=== PATIENT | female | born 1955 | race Caucasian/White ===

== ENCOUNTER → 2019-11-12 | Outpatient (CLI) | payer BC ==
--- NOTE | 2019-11-13 12:44 | REP ---
Clinical: Positive rheumatoid factor . Comparison: None . Technique: PA and lateral. Findings: The mediastinum and cardiac silhouette are normal. The lung da silva are clear and without acute consolidation, effusion, or pneumothorax. The skeletal structures are intact and normal. Impression: 1. No acute cardiopulmonary process. Electronically Signed by Jake Schmidt MD 11/13/2019 12:35 P
--- NOTE | 2019-11-13 12:45 | REP ---
Clinical: Positive rheumatoid factor. Technique: Internal rotation, external rotation, and Y view of the right and left shoulder. Findings: Right shoulder demonstrates mild cortical irregularity and subtle spurring at the acromioclavicular joint. The subacromial space is normal. The glenohumeral joint appears normal. No periarticular calcifications or loose bodies noted. Left shoulder demonstrates mild cortical irregularity and subtle spurring at the acromioclavicular joint. The subacromial space is normal. The glenohumeral joint appears normal. No periarticular calcifications or loose bodies noted. Impression: Mild degenerative changes primarily involving the acromioclavicular joints. Electronically Signed by Jake Schmidt MD 11/13/2019 12:36 P
--- NOTE | 2019-11-13 12:48 | REP ---
Nickel: Positive rheumatoid factor. Technique: AP, lateral, bilateral oblique views of the right and left hand. Findings: Subchondral sclerosis with joint space narrowing and few scattered early osteophytes are noted at the bilateral interphalangeal joints and bilateral first metacarpophalangeal joints. No significant periarticular soft tissue swelling or underlying erosive changes / loose bodies are identified. No acute fracture dislocation. Impression: Mild osteoarthritic degenerative changes primarily involving the interphalangeal joints. Electronically Signed by Jake Schmidt MD 11/13/2019 12:38 P
== END ==
LOC: M WUC 15:34
PROVIDERS: ATTEND Internal Medicine
DX: R63.4 Abnormal weight loss (principal); M06.9 Rheumatoid arthritis, unspecified; M19.011 Primary osteoarthritis, right shoulder; M19.012 Primary osteoarthritis, left shoulder; M19.041 Primary osteoarthritis, right hand; M19.042 Primary osteoarthritis, left hand

== ENCOUNTER → 2019-11-12 | Outpatient (REF) | payer BC ==
[2019-11-12 17:11] LABS: BASO % 0.3 % (0.0-1.0); EOS # 0.1 10^3/uL (0.0-0.5); EOS % 1.1 % (0.0-3.0); HEMATOCRIT 44.4 % (36.0-47.0); HEMOGLOBIN 14.1 g/dl (12.0-15.5); LYMPH # 1.7 10^3/uL (1.5-5.0); LYMPH % 28.1 % (24.0-44.0); MEAN CORPUSCULAR HEMOGLOBIN 28.7 pg (27.0-33.0); MEAN CORPUSCULAR HGB CONC 31.8 g/dl (32.0-36.5); MEAN CORPUSCULAR VOLUME 90.2 fl (80.0-96.0); MONO # 0.7 10^3/uL (0.0-0.8); MONO % 10.7 % (0.0-5.0); NEUTROPHILS # 3.6 10^3/uL (1.5-8.5); NEUTROPHILS % 59.6 % (36.0-66.0); PLATELET COUNT, AUTOMATED 309 10^3/uL (150-450); RED BLOOD COUNT 4.92 10^6/uL (4.00-5.40); WHITE BLOOD COUNT 6.1 10^3/uL (4.0-10.0)
[2019-11-12 17:33] LABS: ERYTHROCYTE SEDIMENTATION RATE 7 mm/hr (0-30)
[2019-11-12 17:53] LABS: BLOOD UREA NITROGEN 18 MG/DL (7-18); CREATININE FOR GFR 0.55 MG/DL (0.55-1.30); GLUCOSE, FASTING 73 MG/DL (70-100)
[2019-11-12 17:54] LABS: ALBUMIN 3.9 GM/DL (3.2-5.2); ALT/SGPT 26 U/L (12-78); BILIRUBIN,TOTAL 0.7 MG/DL (0.2-1.0); C REACTIVE PROTEIN QUANTITATIV < 0.30 MG/DL (0.00-0.30); CALCIUM LEVEL 9.6 MG/DL (8.8-10.2); CARBON DIOXIDE LEVEL 26 MEQ/L (21-32); CHLORIDE LEVEL 105 MEQ/L (98-107); FREE T4 1.07 NG/DL (0.76-1.46); GLOMERULAR FILTRATION RATE > 60.0 (>45); POTASSIUM SERUM 4.6 MEQ/L (3.5-5.1); RHEUMATOID FACTOR QUANT < 10.0 IU/ML (<15.0); SODIUM LEVEL 137 MEQ/L (136-145); TOTAL PROTEIN 7.1 GM/DL (6.4-8.2)
[2019-11-13 12:05] LABS: ALBUMIN 4.39 GM/DL (3.29-5.55); ALBUMIN % 61.8 % (55.8-66.1); ALPHA-1-GLOBULIN % 3.7 % (2.9-4.9); ALPHA-1-GLOBULINS 0.26 GM/DL (0.17-0.41); ALPHA-2-GLOBULINS 0.89 GM/DL (0.42-0.99); ALPHA-2-GLOBULINS % 12.6 % (7.1-11.8); BETA-1-GLOBULINS 0.43 GM/DL (0.28-0.60); BETA-1-GLOBULINS % 6.1 % (4.7-7.2); BETA-2-GLOBULINS 0.35 GM/DL (0.19-0.55); BETA-2-GLOBULINS % 4.9 % (3.2-6.5); GAMMA GLOBULIN % 10.9 % (11.1-18.8); GAMMA GLOBULINS 0.77 GM/DL (0.65-1.58)
[2019-11-14 11:20] LABS: HEPATITIS B SURFACE ANTIGEN NEGATIVE (NEGATIVE)
[2019-11-14 11:48] LABS: HEPATITIS C VIRUS ABY INDEX 0.2 INDEX (<0.8)
[2019-11-15 00:06] LABS: CYCLIC CITRULLINATED PEPTIDE 9 units (0-19); HEPATITIS B CORE ANTIBODY IGG Negative (Negative); SSA SJOGRENS A <0.2 AI (0.0-0.9); SSB SJOGRENS B <0.2 AI (0.0-0.9)
== END ==
LOC: M SFHCRHEU 13:49
PROVIDERS: ATTEND Internal Medicine
DX: M06.9 Rheumatoid arthritis, unspecified (principal); R63.4 Abnormal weight loss

== ENCOUNTER 2019-12-01 06:50 | Inpatient (IN) | payer BC ==
[~2019-12-01] VITALS: Ht 167.6 cm; Wt 82.1 kg
[~2019-12-01 06:50] MED LIST: ASMA16.7 INH; CLINDAMYCIN 900 MG in IV 1 EA IV ONE; CYAN500T8 PO; FOLI1TAB11 PO; LIDOCAINE 1% MDV 20ML VIAL SQ PRN; LOSA25TA14 PO; LR 1,000 ML IV ONE; MOME50SP; MULTCAP PO; OMEP40CA97 PO; PRED1TABL PO; PROZ40CA PO; VITAD1000T PO
[2019-12-01] MEDS ORDERED: BUPIVACAINE LIPOSOME/PF 1.3% 20ML VIAL (13.3MG/ML)(EXPAREL)(C9290 PER1MG) As Ordered ONE (08:55)
[2019-12-01] MEDS ORDERED: TRANEXAMIC ACID 100 MG/ML 10ML VIAL As Ordered ONE (08:55)
[2019-12-01] MEDS ORDERED: CLINDAMYCIN INJ 900MG/6ML VIAL As Ordered ONE (08:55)
[2019-12-01] MEDS ORDERED: EPINEPHrine INJ 1 MG/ML 1ML VIAL As Ordered ONE (08:55)
[2019-12-01] MEDS ORDERED: ONDANSETRON 4MG/2ML VIAL (J2405) As Ordered ONE (08:59)
[2019-12-01] MEDS ORDERED: propofoL 200 MG/20 ML VIAL As Ordered ONE ×2 (08:59→10:38)
[2019-12-01] MEDS ORDERED: LIDOCAINE 2% INJ 100 MG/5 ML SDV (FOR ANES.) As Ordered ONE (08:59)
[2019-12-01] MEDS ORDERED: MIDAZOLAM INJ 2 MG/2 ML VIAL (J2250) As Ordered ONE (09:02)
--- NOTE | 2019-12-01 09:48 | IPN ---
DATE: 12/01/2019 Patient seen and examined preoperatively. She wishes to go ahead with a right total hip arthroplasty. Preop clearance was obtained. She understands the nature of this, the risks of bleeding, infection, damage to nerves, vessels, persistent pain, wear loosening, dislocation, leg length inequality, blood clots, medical problems, , among others. She wished to proceed. She does have some leg length inequality actually with her right leg appearing to be a little bit longer than her left leg and she is aware that this is difficult to improve and may actually get a little longer as a result of the surgery in order to provide stable hip.
[2019-12-01] MEDS ORDERED: fentaNYL 100 MCG/2 ML INJECTION (J3010) As Ordered ONE (10:13)
[2019-12-01] MEDS ORDERED: ePHEDrine SULFATE 25 MG/5 ML(5MG/ML) SYRINGE As Ordered ONE (10:30)
[2019-12-01] MEDS ORDERED: ACETAMINOPHEN 1000MG 100ML IV BTL (OFIRMEV) (J0131 PER 10MG) As Ordered ONE (10:35)
[2019-12-01] MEDS ORDERED: LR 1,000 ML IV SCH ×2 (11:45→12:46)
[2019-12-01] MEDS ORDERED: METOCLOPRAMIDE INJ 10MG/2ML VIAL (J2765) IV PRN (11:45)
[2019-12-01] MEDS ORDERED: fentaNYL 100 MCG/2 ML INJECTION (J3010) IV PRN (11:45)
[2019-12-01] MEDS ORDERED: ONDANSETRON 4MG/2ML VIAL (J2405) IV PRN ×2 (11:45→12:46)
--- NOTE | 2019-12-01 12:43 | REP ---
RIGHT HIP, TWO VIEWS: Two views of the right hip are performed. There has been placement of a total hip prosthesis, which is in good position. Osseous structures are intact and well-aligned. Metallic skin tobias are seen laterally. Electronically Signed by Shaji Sandhu MD 12/01/2019 03:58 P
[2019-12-01] MEDS ORDERED: MORPHINE 4 MG/ML 1ML VIAL/SYRINGE (J2270) IV PRN (12:46)
[2019-12-01] MEDS ORDERED: PERCOCET 5MG/325MG TAB PO PRN (12:46)
[2019-12-01] MEDS ORDERED: ACETAMINOPHEN TAB 650MG DOSE (2X325MG) PO PRN (12:46)
[2019-12-01] MEDS: PERCOCET 5MG/325MG TAB PO PRN ×5 (13:00→22:54)
[2019-12-01] MEDS: MORPHINE 2 MG/ML 1ML VIAL (J2270) IV PRN (15:14)
[2019-12-01] MEDS: CLINDAMYCIN 900 MG in IV 1 EA IV SCH (17:23)
[2019-12-01] MEDS ORDERED: ALBUTEROL SULFATE 2.5 MG/0.5 ML INH NEB SOLN NEB PRN (18:15)
--- NOTE | 2019-12-01 18:25 | HPEPDOC ---
General Date of Admission Dec 01, 2019 at 06:50 Date of Service: Dec 01, 2019 Chief Complaint The patient is a 64-year-old female admitted with a reason for visit of Right Hip Oa. Source: Patient, RN/MD, Old records History of Present Illness Consultation report Consultation requested by Dr Ospina Consultation for management of medical commorbidities. HPI: 64 year old female admitted for elective right total hip arthroplasty for advanced osteoarthritis. Patient had an uneventful surgery. Hospitalist consulte d for management of medical commorbidities. She complains of right hip pain at the surgical site 7/10 in intensity, dull throbbing in nature without any radiation. She she just got back to bed after using the commode that worsened the pain. patient says has lost about 60 lbs in the last year due to some of her medications as well as with diet control so her blood pressure has come come and so her Losartan was reduced from 100 mg to 25 mg by her primary care. Home Medications Scheduled Cholecalciferol (Vitamin D3) (Vitamin D3) 1,000 Unit Tablet, 1,000 UNITS PO DAILY, (Reported) Cyanocobalamin (Vitamin B-12) (Vitamin B-12) 500 Mcg Tablet, Unknown Dose PO DAILY, (Reported) Fluoxetine HCl (Prozac) 40 Mg Capsule, 40 MG PO DAILY, (Reported) Folic Acid (Folic Acid) 1 Mg Tablet, 1 MG PO DAILY, (Reported) Losartan Potassium (Losartan Potassium) 25 Mg Tablet, 25 MG PO DAILY, (Reported) Mometasone Furoate (Asmanex Hfa) 100 Mcg/Act Hfa.aer.ad, Unknown Dose INH QAM, (Reported) Mometasone Furoate Monohydrate (Nasonex) 17 Gm [place].pump, 1 SPRAY NA DAILY, (Reported) Multivitamin (Multivitamins) 1 Each Capsule, 1 CAP PO DAILY, (Reported) Omeprazole (Omeprazole) 40 Mg Capsule.dr, 40 MG PO DAILY, (Reported) Prednisone (Prednisone) 1 Mg Tablet, 1 MG PO DAILY, (Reported) Allergies Coded Allergies: Penicillins (Verified Allergy, Intermediate, rash, 11/27/19) cefprozil (Verified Allergy, Intermediate, rash, 11/27/19) latex (Verified Allergy, Intermediate, rash, 11/27/19) Past Medical History Medical History OA, Hypertension, Rheumatoid arthritis, Asthma, Gastroesophageal reflux disease (GERD), Hyperlipidemia, Depression and anxiety. Surgical History TONSILLECTOMY CHOLECYSTECTOMY APPENDECTOMY KIDNEY STONE ABLATION LAPROSCOPIES for endometriosis, tubal ligations. Family History Significant Family History: Heart disease (father and mother with cabg), Other (sister with RA) Social History * Smoker: Denies Alcohol: Denies Drugs: denies A-FIB/CHADSVASC A-FIB History Current/History of A-Fib/PAF?: No Review of Systems Constitutional: Denies: Chills, Fever, Night Sweats Eyes: Denies: Pain, Vision change ENT: Denies: Head Aches, Ear Pain, Dysphagia Skin: Denies: Rash, Lesions, Breakdown Pulmonary: Denies: Dyspnea, Cough Cardiovascular: Denies: Chest Pain, Palpitations, Orthopnea, Paroxysmal Noc. Dyspnea, Lt Headedness Gastrointestinal: Denies: Nausea, Vomiting, Abdominal Pain, Diarrhea Musculoskeletal: Reports: Joint Pain Neurological: Denies: Weakness, Numbness, Change in speech, Confusion Physical Examination General Exam: Positive: Alert, Cooperative, No Acute Distress Eye Exam: Positive: PERRLA, Conjunctiva & lids normal, EOMI; Negative: Sclera icteric ENT Exam: Positive: Atraumatic, Mucous membr. moist/pink, Pharynx Normal Neck Exam: Positive: Supple; Negative: JVD, thyromegaly Chest Exam: Positive: Clear to auscultation, Normal air movement Heart Exam: Positive: Rate Normal, Regular Rhythm, Normal S1, Normal S2; Negative: Murmurs, Rubs Abdomen Exam: Positive: Normal bowel sounds, Soft; Negative: Tenderness, Hepatospenomegaly Extremity Exam: Positive: Normal pulses; Negative: Clubbing, Cyanosis, Edema Skin Exam: Positive: Nl turgor and temperature; Negative: Breakdown, Lesion Neuro Exam: Positive: Normal Gait, Normal Speech, Cranial Nerves 3-12 NL, Reflexes 2+ Psych Exam: Positive: Mental status NL, Mood NL, Memory Intact, Oriented x 3 Vital Signs Vital Signs Date Time Temp Pulse Resp B/P (MAP) Pulse Ox O2 Delivery O2 Flow Rate FiO2 12/01/19 12:30 97.7 56 16 106/55 (72) 100 Room Air Assessment/Plan Right total hip arthroplasty for advanced OA pain meds and dvt prophylaxis as per ortho Asthma stable coninue asmonex daily and albuterol prn Hypertension BP controlled at present will hold losatan for now RA continue prednisone, folic acid, vit b12 GERD continue omeprazole. Anxiety continue fluoxetine Obesity improved with diet in the past year with loss of 60 lbs. Plan / VTE VTE Prophylaxis Ordered?: Yes URBANO VILLEGAS MD Dec 01, 2019 12:52
[2019-12-01 20:21] VITALS: BP 138/60
[2019-12-01 21:20] VITALS: BP 135/62
--- NOTE | 2019-12-01 23:56 | RO ---
DATE OF PROCEDURE: 12/01/2019 PREOPERATIVE DIAGNOSIS: Right hip osteoarthritis. POSTOPERATIVE DIAGNOSIS: Right hip osteoarthritis. PROCEDURE: Right total hip arthroplasty using a [place] size 7 standard, +5 36 ball, 56 acetabular component. SURGEON: Russ Ospina MD PRISON WARDEN: VIRGILIO Bowser ESTIMATED BLOOD LOSS: 200 mL. COMPLICATIONS: None. DESCRIPTION OF PROCEDURE: The patient was taken to the operating room, placed in a left lateral decubitus position on the Prosper positioner. The right hip was prepped and draped in the usual sterile fashion. Time-out was performed and a longitudinal incision was made over the lateral aspect of the right hip. Sharp dissection was carried down through subcutaneous tissue until the fascia was encountered. This was incised longitudinally, and I then divided the anterior 40% of the abductor off. Gradually exposed the proximal femur and then dislocated the hip. Used the canal initiating reamer, the canal finding reamer, the lateralizing reamer and then sequentially reamed up to a size 7, which had good purchase. I made the neck cut at about three-quarters of a fingerbreadth up from the lesser trochanter. The head was removed, the acetabulum was repaired with anterior and posterior retractor, soft tissue was removed. I then sequentially reamed up to a size 55 and impacted in a 56 liner. Good fit was noted. It was very solid in appropriate amount of anteversion and horizontal tilt had been dialed in. I then placed the actual polyethylene after the apex hole eliminator. I irrigated multiple times up to this point. Impacted in the polyethylene, then directed attention back to the femur. Sequentially broached up to a size 7 and then did a trial with the various neck lengths and was pleased with a standard +5 combination. The hip was very stable. There was excellent stability in flexion internal rotation, extension external rotation. There was minimal shuck in full extension. The soft tissue tension was appropriate. We removed the trial components and packed in the actual size 7 standard stem and the actual 36 +5 ball was impacted over the taper, made sure that this was well seated. We reduced the hip, put the hip through range of motion. Again, very pleased with soft tissue tension and stability, very stable in extension external rotation and flexion internal rotation. I then copiously irrigated as I had multiple times. Repaired the minimus with #1 Vicryl suture. The TXA was placed and the Exparel was placed in the deep tissues. We again irrigated, continued closing the deep layer with #1 Vicryl suture until a solid closure was noted. I then irrigated, closed the fascia avani with #1 Vicryl suture and running Stratafix in both directions. Subcu was closed in layers with #2-0 Vicryl due to her obesity. Hernandez were applied. She was taken to recovery room in stable condition. There were no known complications. The plan will be routine postop. The plant attendant or assistant operator was instrumental in holding retractors and assisting in reducing and dislocating the hip and assisting in wound closure.
[2019-12-02] MEDS: CLINDAMYCIN 900 MG in IV 1 EA IV SCH (01:40)
[2019-12-02] MEDS: MORPHINE 2 MG/ML 1ML VIAL (J2270) IV PRN (01:41)
[2019-12-02 02:03] VITALS: BP 109/62
[2019-12-02 05:16] VITALS: BP 128/63
[2019-12-02] MEDS ORDERED: PERCOCET 5MG/325MG TAB PO PRN (06:15)
[2019-12-02 06:40] LABS: BASO % 0.1 % (0.0-1.0); EOS % 0.3 % (0.0-3.0); HEMATOCRIT 34.9 % (36.0-47.0); HEMOGLOBIN 11.7 g/dl (12.0-15.5); LYMPH # 0.8 10^3/uL (1.5-5.0); LYMPH % 11.2 % (24.0-44.0); MEAN CORPUSCULAR HEMOGLOBIN 30.1 pg (27.0-33.0); MEAN CORPUSCULAR HGB CONC 33.5 g/dl (32.0-36.5); MEAN CORPUSCULAR VOLUME 89.7 fl (80.0-96.0); MONO # 0.7 10^3/uL (0.0-0.8); MONO % 10.2 % (0.0-5.0); NEUTROPHILS # 5.5 10^3/uL (1.5-8.5); NEUTROPHILS % 77.8 % (36.0-66.0); PLATELET COUNT, AUTOMATED 249 10^3/uL (150-450); RED BLOOD COUNT 3.89 10^6/uL (4.00-5.40); WHITE BLOOD COUNT 7.1 10^3/uL (4.0-10.0)
[2019-12-02] MEDS: PERCOCET 5MG/325MG TAB PO PRN ×4 (06:41→22:09)
[2019-12-02 07:06] LABS: BLOOD UREA NITROGEN 10 MG/DL (7-18); CALCIUM LEVEL 8.7 MG/DL (8.8-10.2); CARBON DIOXIDE LEVEL 30 MEQ/L (21-32); CHLORIDE LEVEL 98 MEQ/L (98-107); CREATININE FOR GFR 0.61 MG/DL (0.55-1.30); GLOMERULAR FILTRATION RATE > 60.0 (>45); GLUCOSE, FASTING 117 MG/DL (70-100); POTASSIUM SERUM 3.9 MEQ/L (3.5-5.1); SODIUM LEVEL 132 MEQ/L (136-145)
[2019-12-02] MEDS ORDERED: XARE10TA PO (07:31)
[2019-12-02] MEDS ORDERED: PERC5TAB12 PO (07:31)
[2019-12-02] MEDS: LOSARTAN 25 MG TAB PO SCH (09:00)
[2019-12-02] MEDS: MOMETASONE 220 MCG INH SCH ×2 (09:00→21:53)
[2019-12-02 10:00] VITALS: BP 125/65
[2019-12-02] MEDS: FLUoxetine 20 MG CAP PO SCH (10:02)
[2019-12-02] MEDS: MIRALAX *UNIT DOSE* 17GM PACKET PO SCH (10:03)
[2019-12-02] MEDS: MOM 30ML SUSPENSION UDC PO SCH (10:03)
[2019-12-02] MEDS: OMEPRAZOLE 20 MG CAP PO SCH (10:03)
[2019-12-02] MEDS: CYANOCOBALAMIN 500 MCG TAB PO SCH (10:03)
[2019-12-02] MEDS: FOLIC ACID 1 MG TAB PO SCH (10:03)
--- NOTE | 2019-12-02 11:03 | IPNPDOC ---
Subjective Date Seen The patient was seen on 12/02/19. Subjective Chief Complaint/HPI Says has a lot of pain and could not get out of bed this morning. Has not been able to work with PT. No fever or chills, no chest pain or sob , no cough or phlegm Objective Physical Examination General Exam: Positive: Alert, Cooperative, No Acute Distress Eye Exam: Positive: PERRLA, Conjunctiva & lids normal, EOMI; Negative: Sclera icteric ENT Exam: Positive: Atraumatic, Mucous membr. moist/pink, Pharynx Normal Neck Exam: Positive: Supple; Negative: JVD, thyromegaly Chest Exam: Positive: Clear to auscultation, Normal air movement Heart Exam: Positive: Rate Normal, Regular Rhythm, Normal S1, Normal S2; Negative: Murmurs, Rubs Abdomen Exam: Positive: Normal bowel sounds, Soft; Negative: Tenderness, Hepatospenomegaly Extremity Exam: Positive: Normal pulses; Negative: Clubbing, Cyanosis, Edema Skin Exam: Positive: Nl turgor and temperature; Negative: Breakdown, Lesion Neuro Exam: Positive: Normal Gait, Normal Speech, Cranial Nerves 3-12 NL, Reflexes 2+ Psych Exam: Positive: Mental status NL, Mood NL, Memory Intact, Oriented x 3 Assessment /Plan Assessment Right total hip arthroplasty for advanced OA pain meds and dvt prophylaxis as per ortho Asthma stable continue asmonex daily and albuterol prn Hypertension BP controlled at present will restart losatan with hold parameters. RA continue prednisone, folic acid, vit b12 GERD continue omeprazole. Anxiety continue fluoxetine Obesity improved with diet in the past year with loss of 60 lbs. Plan/VTE VTE Prophylaxis Ordered?: Yes VS, I&O, 24H, [facility] Vital Signs/I&O Vital Signs Date Time Temp Pulse Resp B/P (MAP) Pulse Ox O2 Delivery O2 Flow Rate FiO2 12/02/19 07:11 16 12/02/19 06:41 76 98 Room Air 12/02/19 05:16 98.7 128/63 (84) I&O- Last 24 Hours up to 6 AM 12/02/19 05:59 Intake Total 3070 ml Output Total 1150 ml Balance 1920 ml Laboratory Data 24H LABS Laboratory Tests 2 12/02/19 06:08: Immature Granulocyte % (Auto) 0.4, Neutrophils (%) (Auto) 77.8H, Lymphocytes (%) (Auto) 11.2L, Monocytes (%) (Auto) 10.2H, Eosinophils (%) (Auto) 0.3, Basophils (%) (Auto) 0.1, Neutrophils # (Auto) 5.5, Lymphocytes # (Auto) 0.8L, Monocytes # (Auto) 0.7, Eosinophils # (Auto) 0.0, Basophils # (Auto) 0.0, Nucleated Red Blood Cells % (auto) 0.0, Anion Gap 4L, Glomerular Filtration Rate > 60.0, Calcium Level 8.7L CBC/BMP Laboratory Tests 12/02/19 06:08 URBANO VILLEGAS MD Dec 02, 2019 11:03
[2019-12-02] MEDS: predniSONE 1 MG TAB PO SCH (11:20)
[2019-12-02 14:00] VITALS: BP 124/63
[2019-12-02 18:00] VITALS: BP 110/53
[2019-12-02] MEDS ORDERED: RIVAROXABAN 10 MG TAB (XARELTO) PO SCH (18:00)
[2019-12-02 22:00] VITALS: BP 114/56
[2019-12-03 02:00] VITALS: BP 112/57
[2019-12-03] MEDS: PERCOCET 5MG/325MG TAB PO PRN ×3 (02:12→10:30)
[2019-12-03 06:00] VITALS: BP 112/60
[2019-12-03] MEDS: MOMETASONE 220 MCG INH SCH (08:22)
[2019-12-03 08:50] VITALS: BP 108/60
[2019-12-03 09:00] VITALS: BP 108/60
[2019-12-03] MEDS: LOSARTAN 25 MG TAB PO SCH (09:00)
[2019-12-03] MEDS: MOM 30ML SUSPENSION UDC PO SCH (09:40)
[2019-12-03] MEDS: FOLIC ACID 1 MG TAB PO SCH (09:41)
[2019-12-03] MEDS: predniSONE 1 MG TAB PO SCH (09:41)
[2019-12-03] MEDS: MIRALAX *UNIT DOSE* 17GM PACKET PO SCH (09:41)
[2019-12-03] MEDS: FLUoxetine 20 MG CAP PO SCH (09:41)
[2019-12-03] MEDS: OMEPRAZOLE 20 MG CAP PO SCH (09:42)
[2019-12-03] MEDS: CYANOCOBALAMIN 500 MCG TAB PO SCH (09:42)
--- NOTE | 2019-12-05 11:56 | DSES ---
DATE OF ADMISSION: 12/01/2019 DATE OF DISCHARGE: 12/03/2019 ATTENDING PHYSICIAN: Dr. Russ Ospina. ADMISSION DIAGNOSIS: Right hip osteoarthritis. OTHER DIAGNOSES: 1. Asthma. 2. Hypertension 3. Rheumatoid arthritis 4. Gastroesophageal reflux disease 5. Anxiety. 6. Obesity. DISCHARGE DIAGNOSIS: Right hip osteoarthritis status post right total hip arthroplasty. HISTORY: The patient is a 64-year-old female that had progressively worsening right hip pain and stiffness. She failed to improve with conservative measures. She continued to have symptoms with weightbearing activities and activities of daily living. She consented for an elective right total hip arthroplasty with Dr. Ospina for her continued symptoms. OPERATION PERFORMED: Right total hip arthroplasty. HOSPITAL COURSE: The patient underwent a right total hip arthroplasty which was uneventful and her hospital course was without complication. She was up with physical therapy per their protocol, weightbearing as tolerated on the right lower extremity. The patient was discharged on oral pain medications and will resume her preoperative medications and diet. The patient will use her thromboembolic deterrent stockings and take her anticoagulant as directed to prevent deep venous thrombosis. The patient will followup in our office in 12-14 days for wound check and staple removal. She is encouraged to contact our office sooner if there is any increase in pain, redness, drainage, numbness or tingling in the extremity, fever greater than 101 degrees or any other concerns. Please see medical record for additional details.
== END 2019-12-03 12:45 | disposition home or self-care (01) | DRG 301 ==
LOC: M OR 06:50 → M MS5PR 16:25
PROVIDERS: ADMIT Orthopaedic Surgery; ATTEND Orthopaedic Surgery
PROC: 0SR902Z Replacement of Right Hip Joint with Metal on Polyethylene Synthetic Substitute, Open Approach (ICD-10-PCS; principal; 2019-12-01 09:30)
DX: M16.11 Unilateral primary osteoarthritis, right hip (principal); M06.9 Rheumatoid arthritis, unspecified; I10 Essential (primary) hypertension; J45.909 Unspecified asthma, uncomplicated; K21.9 Gastro-esophageal reflux disease without esophagitis; E78.5 Hyperlipidemia, unspecified; F32.9 Major depressive disorder, single episode, unspecified; F41.9 Anxiety disorder, unspecified; Z79.52 Long term (current) use of systemic steroids; Z79.899 Other long term (current) drug therapy; Z88.0 Allergy status to penicillin; Z88.1 Allergy status to other antibiotic agents; Z91.040 Latex allergy status

== ENCOUNTER → 2020-08-19 | Outpatient (REF) | payer MEDICARE, BC ==
[~2020-08-19] MED LIST changes: -CLINDAMYCIN 900 MG in IV 1 EA IV ONE; +D31000TA2 PO; -LIDOCAINE 1% MDV 20ML VIAL SQ PRN; -LR 1,000 ML IV ONE; +PERC5TAB12 PO; -VITAD1000T PO; +XARE10TA PO
[2020-08-19 17:02] LABS: C REACTIVE PROTEIN QUANTITATIV < 0.30 MG/DL (0.00-0.30); RHEUMATOID FACTOR QUANT 22.3 IU/ML (<15.0)
== END ==
LOC: M SFHCRHEU 15:28
PROVIDERS: ATTEND Internal Medicine
DX: M06.09 Rheumatoid arthritis without rheumatoid factor, multiple sites (principal)

== ENCOUNTER → 2021-05-27 | Outpatient (REF) | payer MEDICARE, BC ==
[~2021-05-27] MED LIST changes: +CYAN500T14 PO; -CYAN500T8 PO; +OMEP40CA4 PO; -OMEP40CA97 PO
[2021-05-27 17:22] LABS: BASO % 0.3 % (0.0-1.0); EOS # 0.1 10^3/uL (0.0-0.5); EOS % 1.1 % (0.0-3.0); HEMATOCRIT 43.2 % (36.0-47.0); HEMOGLOBIN 14.1 g/dl (12.0-15.5); LYMPH # 2.6 10^3/uL (1.5-5.0); LYMPH % 37.2 % (24.0-44.0); MEAN CORPUSCULAR HEMOGLOBIN 29.6 pg (27.0-33.0); MEAN CORPUSCULAR HGB CONC 32.6 g/dl (32.0-36.5); MEAN CORPUSCULAR VOLUME 90.8 fl (80.0-96.0); MONO # 0.7 10^3/uL (0.0-0.8); MONO % 9.9 % (2.0-8.0); NEUTROPHILS # 3.6 10^3/uL (1.5-8.5); NEUTROPHILS % 51.1 % (36.0-66.0); PLATELET COUNT, AUTOMATED 324 10^3/uL (150-450); RED BLOOD COUNT 4.76 10^6/uL (4.00-5.40)
[2021-05-27 17:57] LABS: ALBUMIN 3.7 GM/DL (3.2-5.2); ALT/SGPT 33 U/L (12-78); BILIRUBIN,DIRECT < 0.1 MG/DL (0.0-0.2); BILIRUBIN,TOTAL 0.3 MG/DL (0.2-1.0); BLOOD UREA NITROGEN 9 MG/DL (7-18); CALCIUM LEVEL 9.2 MG/DL (8.8-10.2); CARBON DIOXIDE LEVEL 31 MEQ/L (21-32); CHLORIDE LEVEL 103 MEQ/L (98-107); CPK CREATINE PHOSPHOKINASE 39 U/L (26-192); CREATININE FOR GFR 0.45 MG/DL (0.55-1.30); GLOMERULAR FILTRATION RATE > 60.0 (>45); GLUCOSE, FASTING 64 MG/DL (70-100); HEPATITIS B SURFACE ANTIBODY POSITIVE (POSITIVE); IMMUNOGLOBULIN G 739 MG/DL (681-1648); IMMUNOGLOBULIN M 52.4 MG/DL (40-230); IRON (FE) 63 UG/DL (50-170); MAGNESIUM LEVEL 2.1 MG/DL (1.8-2.4); PHOSPHORUS LEVEL 3.1 MG/DL (2.5-4.9); POTASSIUM SERUM 3.6 MEQ/L (3.5-5.1); RHEUMATOID FACTOR QUANT < 10.0 IU/ML (<15.0); SODIUM LEVEL 137 MEQ/L (136-145); TOTAL 25(OH) VITAMIN D 46.2 NG/ML (30.0-100.0); TOTAL PROTEIN 6.7 GM/DL (6.4-8.2); VITAMIN B12 LEVEL 549 PG/ML (247-911)
[2021-05-27 18:06] LABS: HEPATITIS B SURFACE ANTIGEN NEGATIVE (NEGATIVE)
[2021-05-27 18:19] LABS: ERYTHROCYTE SEDIMENTATION RATE 3 mm/hr (0-30)
[2021-05-27 18:34] LABS: HEPATITIS C VIRUS ABY INDEX < 0.0 INDEX (<0.8)
[2021-05-31 10:17] LABS: ALBUMIN % 62.7 % (55.8-66.1); ALPHA-1-GLOBULIN % 3.4 % (2.9-4.9); ALPHA-1-GLOBULINS 0.23 GM/DL (0.17-0.41); ALPHA-2-GLOBULINS 0.82 GM/DL (0.42-0.99); ALPHA-2-GLOBULINS % 12.2 % (7.1-11.8); BETA-1-GLOBULINS 0.42 GM/DL (0.28-0.60); BETA-1-GLOBULINS % 6.3 % (4.7-7.2); BETA-2-GLOBULINS 0.29 GM/DL (0.19-0.55); BETA-2-GLOBULINS % 4.4 % (3.2-6.5)
[2021-05-31 10:18] LABS: GAMMA GLOBULINS 0.74 GM/DL (0.65-1.58)
[2021-06-01 20:08] LABS: CYCLIC CITRULLINATED PEPTIDE 7 units (0-19); G6PD2 4.67 x10E6/uL (3.77-5.28); HEPATITIS B CORE ANTIBODY IGG Negative (Negative)
== END ==
LOC: M SFHCRHEU 11:02
PROVIDERS: ATTEND Internal Medicine
DX: M05.79 Rheumatoid arthritis with rheumatoid factor of multiple sites without organ or systems involvement (principal); M79.10 Myalgia, unspecified site; Z79.899 Other long term (current) drug therapy; Z11.59 Encounter for screening for other viral diseases
CPT/HCPCS: 80048; 80076; 82306; 82550; 82607; 82784; 82955; 83540; 83735; 84100; 84165; 85025; 85652; 86140; 86200; 86431; 86480; 86704; 86706; 86803; 87340; G0463; G0480

== ENCOUNTER → 2021-06-15 | Outpatient (CLI) | payer MEDICARE, BC ==
[2021-06-15 15:24] LABS: PLATELET COUNT, AUTOMATED 292 10^3/uL (150-450)
[2021-06-15 15:34] LABS: INR 0.85
[2021-06-15 15:35] LABS: PARTIAL THROMBOPLASTIN TIME 28.9 SECONDS (25.9-37.0)
[2021-06-15 15:41] LABS: COLLAGEN EPINEPHRINE 86 SECONDS (74-162)
== END ==
LOC: M LAB 14:26
PROVIDERS: ATTEND Physical Medicine & Rehabilitation
DX: M51.36 Other intervertebral disc degeneration, lumbar region (principal); Z79.899 Other long term (current) drug therapy

== ENCOUNTER → 2021-06-15 | Outpatient (CLI) | payer MEDICARE, BC ==
[2021-06-15 15:24] LABS: BASO % 0.6 % (0.0-1.0); EOS # 0.1 10^3/uL (0.0-0.5); EOS % 1.2 % (0.0-3.0); HEMATOCRIT 42.8 % (36.0-47.0); HEMOGLOBIN 14.5 g/dl (12.0-15.5); LYMPH # 1.9 10^3/uL (1.5-5.0); LYMPH % 38.5 % (24.0-44.0); MEAN CORPUSCULAR HEMOGLOBIN 29.9 pg (27.0-33.0); MEAN CORPUSCULAR HGB CONC 33.9 g/dl (32.0-36.5); MEAN CORPUSCULAR VOLUME 88.2 fl (80.0-96.0); MONO # 0.5 10^3/uL (0.0-0.8); MONO % 9.3 % (2.0-8.0); NEUTROPHILS # 2.4 10^3/uL (1.5-8.5); PLATELET COUNT, AUTOMATED 281 10^3/uL (150-450); RED BLOOD COUNT 4.85 10^6/uL (4.00-5.40); WHITE BLOOD COUNT 4.9 10^3/uL (4.0-10.0)
[2021-06-15 17:57] LABS: ERYTHROCYTE SEDIMENTATION RATE 5 mm/hr (0-30)
== END ==
LOC: M LAB 14:29
PROVIDERS: ATTEND Nurse Practitioner Family
DX: R21 Rash and other nonspecific skin eruption (principal); I77.6 Arteritis, unspecified